=== PATIENT | female | born 1935 | race Caucasian/White ===

== ENCOUNTER 2022-02-13 15:53 | Inpatient (IN) ==
[2022-02-13] MEDS ORDERED: ONDANSETRON 4 MG/2 ML VIAL IV PRN (16:39)
[2022-02-13] MEDS ORDERED: hydrALAZINE 20 MG/1 ML VIAL IV PRN (16:49)
[2022-02-13 17:09] LABS: Basophils % 0.7 % (0.0-0.8); Eosinophils # 0.1 10*3/uL (0.0-0.87); Eosinophils % 1.6 % (0.00-10.9); Hemoglobin 13.2 GM/DL (12.0-16.0); Immature Granulocytes % 0.2 %; Immature Granulocytes Absolute 0.01 #; Lymphocytes # 1.1 10*3/uL (1.4-4.0); Lymphocytes % 25.1 % (21.3-54.2); Mean Corpuscular HGB Conc 32.2 GM/DL (32-36); Mean Corpuscular Volume 98.1 FL (87-102); Mean Platelet Volume 9.4 FL (9.6-12.0); Monocytes # 0.3 10*3/uL (0.11-0.8); Monocytes % 7.4 % (1.7-12.7); Platelet Count 206 T/CUMM (130-400); Red Blood Count 4.18 MC/CUMM (3.8-5.5); Red Cell Distribution Width 13.2 % (9.3-17.3); White Blood Count 4.3 T/CUMM (4-12)
[2022-02-13] MEDS ORDERED: MAGNESIUM SULF RIDER 2 GM/50 ML PREMIX IV PRN (17:19)
[2022-02-13] MEDS ORDERED: MAGNESIUM SULF RIDER 4 GM/100 ML PREMIX IV PRN (17:19)
[2022-02-13 17:23] LABS: Bilirubin,Total 0.5 MG/DL (0.20-1.00); Calcium 9.3 MG/DL (8.5-10.1); Osmolality,Calculated 263.1 MOS/KG (273-304); Potassium 3.4 MMOL/L (3.5-5.1); Total Protein 7.2 G/DL (6.4-8.2)
[2022-02-13 17:39] LABS: PT Patient Result 10.8 SECS (10.5-12.0); Partial Thromboplastin Time 27.1 SECS (23.8-32.1)
[2022-02-13] MEDS ORDERED: POTASSIUM CHLORIDE 20 MEQ TABLET PO ONE (17:56)
[2022-02-13] MEDS: traZODone 50 MG TABLET PO SCH (22:22)
[2022-02-14 05:42] LABS: Eosinophils # 0.1 10*3/uL (0.0-0.87); Eosinophils % 2.4 % (0.00-10.9); Hematocrit 33.8 VOL% (35.7-47.0); Hemoglobin 11.1 GM/DL (12.0-16.0); Lymphocytes # 1.5 10*3/uL (1.4-4.0); Lymphocytes % 39.5 % (21.3-54.2); Mean Corpuscular HGB Conc 32.8 GM/DL (32-36); Mean Corpuscular Volume 96.3 FL (87-102); Mean Platelet Volume 9.5 FL (9.6-12.0); Monocytes # 0.4 10*3/uL (0.11-0.8); Monocytes % 9.7 % (1.7-12.7); Neutrophils % 47.4 % (38.7-73.9); Platelet Count 172 T/CUMM (130-400); Red Blood Count 3.51 MC/CUMM (3.8-5.5); Red Cell Distribution Width 13.2 % (9.3-17.3); White Blood Count 3.8 T/CUMM (4-12)
[2022-02-14 06:01] LABS: Osmolality,Calculated 263.7 MOS/KG (273-304); Potassium 4.5 MMOL/L (3.5-5.1)
[2022-02-14 06:19] LABS: Platelet Estimate Adequate
[2022-02-14] MEDS ORDERED: DIAZEPAM 5 MG TABLET PO ONE (07:00)
[2022-02-14] MEDS ORDERED: SODIUM CHLORIDE 0.9% 1,000 ML IV SCH (07:00)
[2022-02-14] MEDS ORDERED: diphenhydrAMINE CAP 25 MG CAPSULE PO ONE (07:00)
[2022-02-14] MEDS ORDERED: TISSUE ADHESIVE 1 EACH APPLICATOR TOP ONE (09:20)
[2022-02-14] MEDS ORDERED: MIDAZOLAM 2 MG/2 ML VIAL ONE (11:15)
[2022-02-14] MEDS ORDERED: fentaNYL 100 MCG/2 ML VIAL ONE (11:15)
[2022-02-14] MEDS ORDERED: VANCOMYCIN 500 MG VIAL ONE ×2 (11:16→11:22)
[2022-02-14] MEDS ORDERED: PROMETHAZINE 25 MG/1 ML VIAL ONE (12:01)
[2022-02-14] MEDS ORDERED: ALUMINUM/MAGNES/SIMETH MAX STR 30 ML UDCUP PO PRN (12:55)
[2022-02-14] MEDS: ACETAMINOPHEN 325 MG TABLET PO PRN (17:10)
[2022-02-14] MEDS: traZODone 50 MG TABLET PO SCH (21:37)
[2022-02-15] MEDS: ACETAMINOPHEN 325 MG TABLET PO PRN ×5 (00:43→22:29)
[2022-02-15 06:05] LABS: Basophils % 0.3 % (0.0-0.8); Eosinophils % 0.5 % (0.00-10.9); Hemoglobin 10.7 GM/DL (12.0-16.0); Immature Granulocytes % 0.3 %; Immature Granulocytes Absolute 0.02 #; Lymphocytes # 1.4 10*3/uL (1.4-4.0); Mean Corpuscular HGB Conc 32.4 GM/DL (32-36); Mean Corpuscular Volume 97.3 FL (87-102); Mean Platelet Volume 10.5 FL (9.6-12.0); Monocytes # 0.6 10*3/uL (0.11-0.8); Monocytes % 8.7 % (1.7-12.7); Neutrophils % 68.2 % (38.7-73.9); Platelet Count 153 T/CUMM (130-400); Red Blood Count 3.39 MC/CUMM (3.8-5.5); Red Cell Distribution Width 13.3 % (9.3-17.3); White Blood Count 6.5 T/CUMM (4-12)
[2022-02-15 06:11] LABS: Calcium 8.2 MG/DL (8.5-10.1); Osmolality,Calculated 264.5 MOS/KG (273-304); Potassium 3.9 MMOL/L (3.5-5.1)
[2022-02-15] MEDS ORDERED: AMIODARONE INJ 150 MG in DEXTROSE 5% 100 ML IV ONE (08:09)
[2022-02-15] MEDS ORDERED: AMIODARONE INJ 450 MG in DEXTROSE 5% 241 ML IV SCH (08:30)
[2022-02-15] MEDS: FERROUS SULFATE 325 MG TABLET PO SCH (10:11)
[2022-02-15] MEDS: FAMOTIDINE 20 MG TABLET PO SCH (10:11)
[2022-02-15] MEDS: LOSARTAN 25 MG TABLET PO SCH ×2 (10:27→22:30)
[2022-02-15] MEDS: CALCITONIN NASAL SPRAY 3.7 ML BOTTLE ONE NARE SCH (10:28)
[2022-02-15] MEDS: AMIODARONE INJ 450 MG in DEXTROSE 5% 241 ML IV SCH ×2 (15:36→22:32)
[2022-02-15] MEDS: traZODone 50 MG TABLET PO SCH (22:30)
[2022-02-16] MEDS: AMIODARONE 200 MG TABLET PO SCH ×3 (05:31→23:05)
[2022-02-16 05:42] LABS: Basophils % 0.3 % (0.0-0.8); Eosinophils % 0.6 % (0.00-10.9); Hemoglobin 11.4 GM/DL (12.0-16.0); Immature Granulocytes % 0.5 %; Immature Granulocytes Absolute 0.03 #; Lymphocytes # 1.3 10*3/uL (1.4-4.0); Lymphocytes % 20.6 % (21.3-54.2); Mean Corpuscular HGB Conc 32.6 GM/DL (32-36); Mean Platelet Volume 9.9 FL (9.6-12.0); Monocytes # 0.7 10*3/uL (0.11-0.8); Monocytes % 10.7 % (1.7-12.7); Neutrophils % 67.3 % (38.7-73.9); Platelet Count 155 T/CUMM (130-400); Red Blood Count 3.57 MC/CUMM (3.8-5.5); Red Cell Distribution Width 13.3 % (9.3-17.3); White Blood Count 6.5 T/CUMM (4-12)
[2022-02-16 06:07] LABS: Calcium 8.4 MG/DL (8.5-10.1); Osmolality,Calculated 266.4 MOS/KG (273-304); Potassium 3.5 MMOL/L (3.5-5.1)
[2022-02-16] MEDS: AMIODARONE INJ 450 MG in DEXTROSE 5% 241 ML IV SCH ×2 (06:46→20:15)
[2022-02-16] MEDS ORDERED: POTASSIUM CHLORIDE 20 MEQ TABLET PO ONE (07:10)
[2022-02-16] MEDS: ACETAMINOPHEN 325 MG TABLET PO PRN ×2 (07:17→13:44)
[2022-02-16] MEDS: CALCITONIN NASAL SPRAY 3.7 ML BOTTLE ONE NARE SCH (09:05)
[2022-02-16] MEDS: FAMOTIDINE 20 MG TABLET PO SCH (10:09)
[2022-02-16] MEDS: APIXABAN 2.5 MG TABLET PO SCH ×2 (10:09→23:05)
[2022-02-16] MEDS: FERROUS SULFATE 325 MG TABLET PO SCH (10:09)
[2022-02-16] MEDS: LOSARTAN 25 MG TABLET PO SCH ×2 (10:09→23:04)
[2022-02-16] MEDS: POLYETHYLENE GLYCOL POWDER 17 GM PACK PO SCH (10:13)
[2022-02-16] MEDS: METOPROLOL TARTRATE 25 MG TABLET PO SCH ×2 (10:15→23:04)
[2022-02-16] MEDS: ASCORBIC ACID 500 MG TABLET PO SCH ×2 (10:15→23:04)
[2022-02-16] MEDS: traZODone 50 MG TABLET PO SCH (23:03)
[2022-02-17] MEDS: LEVOTHYROXINE 25 MCG TABLET PO SCH (05:45)
[2022-02-17 05:58] LABS: Basophils % 0.6 % (0.0-0.8); Eosinophils # 0.1 10*3/uL (0.0-0.87); Eosinophils % 2.3 % (0.00-10.9); Hematocrit 31.5 VOL% (35.7-47.0); Hemoglobin 9.9 GM/DL (12.0-16.0); Immature Granulocytes % 0.2 %; Immature Granulocytes Absolute 0.01 #; Lymphocytes # 1.4 10*3/uL (1.4-4.0); Lymphocytes % 26.8 % (21.3-54.2); Mean Corpuscular HGB Conc 31.4 GM/DL (32-36); Mean Corpuscular Volume 98.7 FL (87-102); Mean Platelet Volume 10.1 FL (9.6-12.0); Monocytes # 0.5 10*3/uL (0.11-0.8); Neutrophils % 60.1 % (38.7-73.9); Platelet Count 137 T/CUMM (130-400); Red Blood Count 3.19 MC/CUMM (3.8-5.5); Red Cell Distribution Width 13.3 % (9.3-17.3); White Blood Count 5.1 T/CUMM (4-12)
[2022-02-17 06:16] LABS: Calcium 8.2 MG/DL (8.5-10.1); Osmolality,Calculated 267.4 MOS/KG (273-304)
[2022-02-17] MEDS ORDERED: hydroCHLOROthiazide 12.5 MG CAPSULE PO SCH (09:00)
[2022-02-17] MEDS ORDERED: ASCORBIC ACID 500 MG TABLET PO SCH (09:00)
[2022-02-17] MEDS ORDERED: METOPROLOL TARTRATE 25 MG TABLET PO ONE (09:17)
[2022-02-17] MEDS: AMIODARONE 200 MG TABLET PO SCH ×2 (09:23→21:47)
[2022-02-17] MEDS: FAMOTIDINE 20 MG TABLET PO SCH (09:23)
[2022-02-17] MEDS: ASCORBIC ACID 500 MG TABLET PO SCH ×2 (09:23→21:36)
[2022-02-17] MEDS: OMEGA 3 ACID ETHYL ESTERS 1 GM CAPSULE PO SCH (09:23)
[2022-02-17] MEDS: LOSARTAN 25 MG TABLET PO SCH ×2 (09:23→21:37)
[2022-02-17] MEDS: FERROUS SULFATE 325 MG TABLET PO SCH (09:24)
[2022-02-17] MEDS: POLYETHYLENE GLYCOL POWDER 17 GM PACK PO SCH (09:24)
[2022-02-17] MEDS: APIXABAN 2.5 MG TABLET PO SCH ×2 (09:24→21:38)
[2022-02-17] MEDS: METOPROLOL TARTRATE 25 MG TABLET PO SCH (09:27)
[2022-02-17] MEDS: CALCITONIN NASAL SPRAY 3.7 ML BOTTLE ONE NARE SCH (12:38)
[2022-02-17] MEDS: METOPROLOL TARTRATE 50 MG TABLET PO SCH (21:36)
[2022-02-17] MEDS: traZODone 50 MG TABLET PO SCH (21:36)
[2022-02-17] MEDS: ACETAMINOPHEN 325 MG TABLET PO PRN (21:38)
[2022-02-18 05:00] LABS: Basophils % 0.8 % (0.0-0.8); Eosinophils # 0.1 10*3/uL (0.0-0.87); Eosinophils % 2.2 % (0.00-10.9); Hematocrit 31.7 VOL% (35.7-47.0); Hemoglobin 10.3 GM/DL (12.0-16.0); Immature Granulocytes % 0.4 %; Immature Granulocytes Absolute 0.02 #; Lymphocytes # 1.4 10*3/uL (1.4-4.0); Lymphocytes % 27.8 % (21.3-54.2); Mean Corpuscular HGB Conc 32.5 GM/DL (32-36); Mean Corpuscular Volume 97.8 FL (87-102); Monocytes # 0.4 10*3/uL (0.11-0.8); Monocytes % 8.1 % (1.7-12.7); Neutrophils % 60.7 % (38.7-73.9); Platelet Count 159 T/CUMM (130-400); Red Blood Count 3.24 MC/CUMM (3.8-5.5); Red Cell Distribution Width 13.2 % (9.3-17.3); White Blood Count 5.1 T/CUMM (4-12)
[2022-02-18 05:27] LABS: Calcium 8.7 MG/DL (8.5-10.1); Osmolality,Calculated 268.2 MOS/KG (273-304)
[2022-02-18] MEDS ORDERED: SODIUM CHLORIDE 0.9% 1,000 ML IV SCH (06:00)
[2022-02-18] MEDS: LEVOTHYROXINE 25 MCG TABLET PO SCH ×2 (06:18→08:45)
[2022-02-18] MEDS: METOPROLOL TARTRATE 50 MG TABLET PO SCH (08:44)
[2022-02-18] MEDS: ASCORBIC ACID 500 MG TABLET PO SCH (08:45)
[2022-02-18] MEDS: APIXABAN 2.5 MG TABLET PO SCH (08:45)
[2022-02-18] MEDS: FERROUS SULFATE 325 MG TABLET PO SCH (08:45)
[2022-02-18] MEDS: OMEGA 3 ACID ETHYL ESTERS 1 GM CAPSULE PO SCH (08:45)
[2022-02-18] MEDS: FAMOTIDINE 20 MG TABLET PO SCH (08:45)
[2022-02-18] MEDS: POLYETHYLENE GLYCOL POWDER 17 GM PACK PO SCH (08:46)
[2022-02-18] MEDS: CALCITONIN NASAL SPRAY 3.7 ML BOTTLE ONE NARE SCH (08:54)
[2022-02-18] MEDS ORDERED: LOSARTAN 50 MG TABLET PO SCH (09:00)
[2022-02-18 11:12] VITALS: BP 188/88
== END 2022-02-18 11:02 | disposition home health service (06) | DRG 243 ==
LOC: N.TELEN 16:02
PROVIDERS: ADMIT Internal Medicine Cardiovascular Disease; ATTEND Internal Medicine Cardiovascular Disease